=== PATIENT | male | born 1950 | race Caucasian/White ===

== ENCOUNTER 2017-08-25 15:29 | Inpatient (IN) | payer OTHER ==
[2017-08-25] MEDS ORDERED: ALBUTEROL 60 PUFFS/8 GM MDI IH PRN (16:38)
[2017-08-25] MEDS ORDERED: FLUTICASONE NASAL 120 SPRAYS/16 GM MDI EACHNARE PRN (16:38)
[2017-08-25] MEDS ORDERED: DEXAMETHASONE 2 MG TAB PO SCH (16:45)
[2017-08-25] MEDS ORDERED: D50W 25 GM/50 ML SYR IVP PRN (17:09)
[2017-08-25] MEDS: INSULIN LISPRO 100 UNIT/ML SC SCH (17:29)
--- NOTE | 2017-08-25 17:33 | PDOREHIP ---
Admission [facility] - Admission - 3 Day Assessment Period Admission Date/Day 1: 08/25/17 Day 2: 08/26/17 Day 3: 08/27/17 - Active Diagnoses Comorbidities and Co-existing Conditions at Admission: 32380. None of the Above - Skin Conditions Unhealed Pressure Ulcer (1 or more/Stage 1 or >)-Admission: 0. No
[2017-08-25] MEDS: metFORMIN HCL 500 MG TAB PO SCH (17:43)
[2017-08-25] MEDS ORDERED: DEXAMETHASONE 4 MG TAB PO ONE (18:00)
[2017-08-25] MEDS ORDERED: PANTOPRAZOLE SODIUM 40 MG TAB PO SCH (18:00)
--- NOTE | 2017-08-25 18:08 | GHP ---
[f rep st] HISTORY AND PHYSICAL POST ADMISSION PHYSICIAN EVALUATION AND REHABILITATION TREATMENT PLAN DATE OF ADMISSION: 08/25/2017 DATE OF EVALUATION: August 25, 2017 TIME OF EVALUATION: 1630 REFERRING FACILITY: [facility] REFERRING PHYSICIAN: Dr. Engel IMPAIRMENT GROUP: 2.1 DATE OF ONSET: August 18, 2017. REHABILITATION DIAGNOSIS: Debility status post craniotomy and resection of recurrent left parietal glioblastoma. ETIOLOGIC DIAGNOSIS: Nontraumatic brain dysfunction. DATE OF SURGERY: August 21, 2017 CONSULTATIONS: 1. Irvin Pierre M.D., Neurology. 2. Oncology. 3. Palliative Care. BODY AFTER REPORT REPORT TITLE: HISTORY OF PRESENT ILLNESS: This patient has a history of a right parietal glioblastoma and a prior rehabilitation stay at [facility] inpatient rehabilitation in October of 2015. He had a 7-10 day history of confusion and right-sided paresthesias and incoordination of the right hand. He came to the hospital. A head CT was positive for recurrent mass in the left parietal lobe with cerebral edema and midline shift. He was admitted to [facility] where he underwent a left craniotomy and tumor resection. He was treated with dexamethasone for cerebral edema. He had insulin for elevated blood sugars on the dexamethasone. Anticonvulsants were continued for history of seizures. He was noted to have a right visual field defect. He was otherwise medically stabilized and ready for inpatient rehabilitation. STUDIES AND LABS IN THE HOSPITAL: A BMP on the day of discharge showed a very slightly low sodium at 135, and CO2 was also slightly low at 20. Otherwise renal function and electrolytes were within normal limits. His fasting blood sugar was 115. CBC on 08/22/2017 showed an elevated white blood cell count at 14.74. He developed anemia with a hemoglobin of 11.9 and hematocrit of 35.2, platelet count was normal at 212. MRI brain after surgery showed postoperative changes from a left occipital craniotomy and resection over the previously noted large enhancing left occipital mass with subacute blood products and scattered pneumocephalus within the resection cavity. There was cytotoxic edema along the surgical margins compatible with acute ischemic change. There were stable postoperative changes from the previous right parietal craniotomy and mass resection. PRECAUTIONS: He is a fall risk. He has aspiration precautions and seizure precautions. ACTIVE COMORBIDITIES: He has no active tier 1, tier 2 or tier 3 comorbidities. PAST MEDICAL HISTORY: 1. 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 2. Gastroesophageal reflux disorder. 3. Steroid-induced diabetes mellitus. 4. Seizure disorder. 5. Vitamin D deficiency. 6. Benign prostatic hypertrophy. PAST SURGICAL HISTORY: He has had a prior craniotomy and excision of the right parietal glioblastoma. PRE-HOSPITAL MEDICATIONS: Medications prior to admission: 1. Folic acid 400 mg p.o. daily. 2. Lactobacillus rhamnosus 1 p.o. daily. 3. Ubidecarenone 1 tablet p.o. at bedtime. 4. Acetaminophen 650 mg p.o. q.6 hours p.r.n. 5. Albuterol 2 puffs every 4 hours p.r.n. 6. Atorvastatin 80 mg p.o. at bedtime. 7. Calcium carbonate 500 mg p.r.n. 8. Vitamin D 2000 units p.o. at bedtime. 9. Fluticasone 2 sprays each naris daily. 10. Levetiracetam 1500 mg p.o. twice daily. 11. Loratadine 10 mg p.o. daily. 12. Melatonin 3 mg p.o. at bedtime. 13. Metformin 500 mg p.o. twice daily. 14. Ondansetron 8 mg q.4 hours p.r.n. 15. Pantoprazole 40 mg p.o. twice daily before meals. 16. Prochlorperazine 10 mg p.o. q.4 hours p.r.n. 17. Tamsulosin 0.4 mg p.o. daily. 18. Multivitamin daily. 19. Zonisamide 100 mg p.o. at bedtime. ADMISSION MEDICATIONS: 1. Acetaminophen 650 mg p.o. q.6 hours p.r.n. 2. Albuterol 2 puffs q.4 hours p.r.n. 3. Atorvastatin 80 mg p.o. at bedtime. 4. Calcium carbonate 500 mg p.o. before meals and at h.s. p.r.n. 5. Cholecalciferol 2000 units p.o. at bedtime. 6. Dexamethasone taper with a 4 mg dose this evening and subsequently 2 mg q.12 hours. 7. Famotidine 20 mg p.o. twice daily p.r.n. 8. Fluticasone 2 sprays each naris daily. 9. Levetiracetam 1500 mg p.o. twice daily. 10. Loratadine 10 mg p.o. daily. 11. Melatonin 3 mg p.o. at bedtime. 12. Metformin 1000 mg p.o. twice daily with meals. 13. Multivitamin 1 p.o. daily. 14. Ondansetron 8 mg p.o. q.4 hours p.r.n. 15. Pantoprazole 40 mg p.o. twice daily with meals. 16. Prochlorperazine 10 mg p.o. q.4 hours p.r.n. 17. Tamsulosin 0.4 mg p.o. daily. 18. Zonisamide 100 mg p.o. at bedtime. ALLERGIES: Listed to midazolam which caused agitation. PSYCHOSOCIAL HISTORY: He is . He lives with his . He is a retired computer hardware developer. He has three adult children, two of whom are local. He is a nonsmoker. He has a history of using occasional alcohol, but not for a year or more. FAMILY HISTORY: There is diabetes in the maternal grandmother. REVIEW OF SYSTEMS: He is aware of visual difficulties. He denies a headache. He denies numbness, tingling or weakness of the extremities. He denies difficulty swallowing. He denies cough or dyspnea, chest pain or palpitations, nausea, vomiting, constipation, diarrhea, difficulty urinating. Otherwise a 10- point review of systems is negative. PHYSICAL EXAM: VITAL SIGNS: Blood pressure is 111/68, heart rate is 60, respiratory rate is 18, oxygen saturation is 98% on room air, temperature is 36.8 degrees centigrade. His weight is 75.2 kg for a body mass index of 24.5. GENERAL: This is a well-developed, well-nourished man sitting on the edge of the bed, dressed in street clothes, cooperative and in no acute distress. HEENT : Extraocular movements are intact, though he can lose track of the examiner's finger. Pupils are equal, round, reactive to light. Mucous membranes are moist. Dentition is in good condition. He has uncrowded airway, Mallampati class 2: There is no posterior oropharyngeal mucus and no oropharyngeal mucosal lesions. NECK: Supple. HEART: There is a regular rate and rhythm with no murmurs, rubs, or gallops. LUNGS: Clear to auscultation bilaterally. ABDOMEN: Soft, nontender, nondistended with normoactive bowel sounds and no hepatosplenomegaly. EXTREMITIES: There is no cyanosis, clubbing, or edema. Radial and dorsalis pedis pulses are 2+ bilaterally. NEUROLOGIC: He is alert and oriented x3. Cranial nerves 2-12 are grossly intact. There is no focal weakness. Sensation is intact to light touch and there is no extinguishing to double simultaneous stimulation. There is no pronator drift. Deep tendon reflexes are 2+ bilaterally at the biceps, patellar, and Achilles tendons. [id number] is within normal limits, though he has some ataxia with the left upper extremity, and rapid alternating movements are intact. SKIN: There is a well-approximated surgical incision on the left occipital region with sutures present. There is no erythema and no drainage. CURRENT LEVEL OF FUNCTION: Per the pre-admission screen. Regarding diet, feeding, and swallowing he was on a regular diet and he required supervision for eating. Regarding grooming he required minimal assist with voice cues, standing at the sink to brush his teeth. Dressing: Upper body was done with moderate assist and lower body with minimal assist and voice cues. Toileting required moderate assistance. Bed mobility required supervision. Transfers required minimal assist with verbal and tactile cues. Balance was fair and endurance was fair. He ambulated 100 feet with moderate assistance and difficulty with path finding due to visual deficit. Regarding cognition he had moderate impairment in recall, attention and orientation. He was considered a fall risk with mobility limited by visual deficits. On today's exam, there are no significant changes from the preadmission screen. IMPRESSION: This is a 66-year-old man who unfortunately had a recurrence of glioblastoma multiform after nearly 2 years following his previous surgery. He had been treated with chemotherapy with Temodar and radiation therapy. He developed a seizure disorder during his radiation therapy which ultimately is controlled with 2 medications. He has diabetes mellitus and worsening of his blood sugars on dexamethasone. He has benign prostatic hypertrophy and he is being treated for seasonal allergies and possible asthma. He has deficits to mobility and activities of daily living, and he has cognitive impairment. He is appropriate for inpatient rehabilitation for PT, OT , and ROADS SUPERVISOR regarding mobility, activities of daily living and cognition, the care of a nurse for skin integrity, wound healing, bowel and bladder, medication administration, and medication education, and the care of a physician for symptom management, risk for neurologic deterioration, seizure risk, and comorbidities including diabetes mellitus, gastroesophageal reflux disorder, and benign prostatic hypertrophy. His goal is to complete a rehabilitation stay and then return home with his family and supportive services. It is anticipated that for a safe discharge, he will achieve independence with eating and bed mobility. He will be modified independence for grooming, transfers, and for ambulation with the least restrictive device on level and unlevel surfaces. He may continue to require supervision for bathing and dressing, and he will likely require assistance for household management, as well as meal preparation and chopping. He will have therapy with physical therapy, occupational therapy, and speech therapy for 1 hour per day for each discipline on 5-7 days of the week. His expected duration of stay is 7-10 days. It is anticipated that upon discharge he will continue to benefit from home health services including nursing, speech and language pathology, a nurse's aide , social work, occupational therapy, and physical therapy. PLAN: 1. Deficits to mobility and activities of daily living with significant visual field deficits following surgery and excision of a recurrent glioblastoma multiforme in the left parietal region, PT and OT to optimize mobility and activities of daily living to the independent to modified independent level. 2. Cognitive impairment following brain surgery, assessment and treatment per Speech and Language Pathology. 3. Diabetes mellitus with exacerbation on corticosteroids. Continue metformin and we will order insulin on a sliding scale. 4. Seizure disorder. Continue levetiracetam and zonisamide, and he will have seizure precautions. 5. Seasonal allergies and history of asthma. Continue albuterol, cetirizine and fluticasone nasal spray. 6. Gastroesophageal reflux disorder as well as GI prophylaxis. Continue pantoprazole, famotidine, and calcium carbonate all on a p.r.n. basis. 7. Benign prostatic hypertrophy. Continue tamsulosin. 8. Nausea, which in the past has presented during speech therapy sessions. Continue ondansetron as well as prochlorperazine. 9. Mild hyponatremia and anemia on hospital labs. We will check a BMP and a CBC tomorrow morning. FOLLOWUP: He is to see Dr. Pierre at [facility] within 1-2 weeks. He will follow up with [facility] Oncology, Dr. Gamez. His primary care provider is [place] [facility], Dr. Olayinka Dempsey. Radiology Oncology is Dr. Collins. He also can follow up with [facility] after his discharge. /[id number]/MODL MTDD
[2017-08-25] MEDS: FAMOTIDINE 20 MG TAB PO PRN (19:38)
[2017-08-25] MEDS: ATORVASTATIN CALCIUM 40 MG TAB PO SCH (20:22)
[2017-08-25] MEDS: levETIRAcetam 500 MG TAB PO SCH (20:22)
[2017-08-25] MEDS: MELATONIN 3 MG TAB PO SCH (20:22)
[2017-08-25] MEDS: CHOLECALCIFEROL VIT D3 1,000 UNITS TAB PO SCH (20:22)
[2017-08-25] MEDS: ZONISAMIDE 100 MG CAP PO SCH (20:23)
[2017-08-25] MEDS ORDERED: LEVETIRACETAM 1500 MG PO SCH (21:00)
[2017-08-25] MEDS ORDERED: NON-FORMULARY NEW DRUG (Atorvastatin Calcium [Lipitor 80 Mg] 80 MG) PO SCH (21:00)
[2017-08-26] MEDS: DEXAMETHASONE 2 MG TAB PO SCH ×2 (06:09→17:27)
[2017-08-26] MEDS: CETIRIZINE 10 MG TAB PO SCH (08:12)
[2017-08-26] MEDS: metFORMIN HCL 500 MG TAB PO SCH ×2 (08:12→17:27)
[2017-08-26] MEDS: MULTIVITAMINS 1 EACH TAB PO SCH (08:12)
[2017-08-26] MEDS: PANTOPRAZOLE SODIUM 40 MG TAB PO SCH ×2 (08:13→16:38)
[2017-08-26] MEDS: TAMSULOSIN HCL 0.4 MG CAP PO SCH (08:13)
[2017-08-26] MEDS: levETIRAcetam 500 MG TAB PO SCH ×2 (08:13→20:35)
[2017-08-26] MEDS: INSULIN LISPRO 100 UNIT/ML SC SCH ×3 (08:13→16:45)
[2017-08-26] MEDS ORDERED: Herbals/Supplements -Info Only PO SCH (09:00)
[2017-08-26] MEDS ORDERED: NON-FORMULARY NEW DRUG (Loratadine [Loratadine] 10 MG) PO SCH (09:00)
[2017-08-26 09:01] LABS: PLATELET COUNT 267 10^3/uL (150-400)
[2017-08-26] MEDS: ONDANSETRON DISINTEGRATING 4 MG TAB PO PRN (12:08)
--- NOTE | 2017-08-26 13:17 | HOSPPROG ---
Hospitalist Progress Note Assessment/Plan: Assessment: 66 yo M p/w recurrent GBM s/p excision Plan: # GBM. Recurrent, left parietal w/ vasogenic edema and midline shift, s/p excision by Dr. Pierre -cont on dex taper -surg site well healing, sutures intact -ongoing nausea/dizziness symptoms provoked by JAVA FRONT END WEB DEVELOPER/Cog therapy, d/w patient and , in the past he was responsive to pre-medicating w/ Zofran prior to JAVA FRONT END WEB DEVELOPER therapy, and I would recommend that we do this moving forward w/ 8mg PO zofran -if 8mg zofran makes him too lethargic for therapies, we can reduce to 4mg -current exam demonstrates visual field deficits, lethargy, and mobility impairment # DM2 w/ hyperglycemia. Exacerbated by steroids, FBG 100 today -cont on home metformin + ISS, currently does not require addition of basal insulin # Seizure disorder. Chronic, likely lower threshold in setting of recent NSGY -cont on keppra and zonisamide # BPH. Chronic, cont on tamsulosin Diet. ADA PPx. Pharm contraindicated, SCDs Code. Full Dispo. ADD uncertain, ongoing therapy needs Subjective: patient reports dizziness/nausea immediately following his JAVA FRONT END WEB DEVELOPER session Objective: Vital Signs Temp Pulse Resp BP Pulse Ox 37.0 C 56 L 16 116/67 98 08/26/17 05:27 08/26/17 05:27 08/26/17 05:27 08/26/17 05:44 08/26/17 05:27 Laboratory Results 08/26/17 06:00 08/26/17 06:00 08/25/17 08/26/17 08/27/17 05:59 05:59 05:59 Intake Total 1160 500 Output Total 1775 Balance -615 500 - Physical Exam Constitutional: no apparent distress, not in pain, chronically ill appearing, No uncomfortable Cardiovascular: regular rate and rhythym, no murmur, rub, or gallop, No edema Respiratory: no respiratory distress, no rales or rhonchi, clear to auscultation Gastrointestinal: normoactive bowel sounds, soft, non-tender abdomen, no palpable masses Skin: other (no significant erythema/induration/tenderness/edema around surg site on posterior scalp) Neurologic: AAOx3, sensation intact bilaterally, other (visual field deficits peripherally and RL quad), No facial droop Psychiatric: not anxious, not encephalopathic, flat affect, other (lethargic but arousable), No agitated ICD10 Worksheet Patient Problems: Problems Problem Status Onset S/P craniotomy Acute Glioblastoma multiforme of parietal lobe Acute
[2017-08-26] MEDS: FAMOTIDINE 20 MG TAB PO PRN (20:07)
[2017-08-26] MEDS: ZONISAMIDE 100 MG CAP PO SCH (20:35)
[2017-08-26] MEDS: CHOLECALCIFEROL VIT D3 1,000 UNITS TAB PO SCH (20:36)
[2017-08-26] MEDS: MELATONIN 3 MG TAB PO SCH (20:36)
[2017-08-26] MEDS: ATORVASTATIN CALCIUM 40 MG TAB PO SCH (20:36)
[2017-08-27] MEDS: DEXAMETHASONE 2 MG TAB PO SCH (05:30)
[2017-08-27] MEDS: PANTOPRAZOLE SODIUM 40 MG TAB PO SCH ×2 (07:08→16:38)
[2017-08-27] MEDS: INSULIN LISPRO 100 UNIT/ML SC SCH ×3 (07:10→16:39)
[2017-08-27] MEDS: ONDANSETRON DISINTEGRATING 4 MG TAB PO PRN ×2 (08:48→13:05)
[2017-08-27] MEDS: metFORMIN HCL 500 MG TAB PO SCH ×2 (08:49→17:34)
[2017-08-27] MEDS: CETIRIZINE 10 MG TAB PO SCH (08:49)
[2017-08-27] MEDS: MULTIVITAMINS 1 EACH TAB PO SCH (08:49)
[2017-08-27] MEDS: levETIRAcetam 500 MG TAB PO SCH ×2 (08:49→20:25)
[2017-08-27] MEDS: TAMSULOSIN HCL 0.4 MG CAP PO SCH (08:49)
[2017-08-27] MEDS: ACETAMINOPHEN 325 MG TAB PO PRN (11:12)
[2017-08-27] MEDS ORDERED: SODIUM CL NASAL 45 ML BTL EACHNARE PRN (12:19)
--- NOTE | 2017-08-27 12:22 | HOSPPROG ---
Hospitalist Progress Note Assessment/Plan: Assessment: 66 yo M p/w recurrent GBM s/p excision Plan: # GBM. Recurrent, left parietal w/ vasogenic edema and midline shift, s/p excision by Dr. Pierre -cont on dex taper, adjusted from 2mg bid to 2mg daily starting this AM, duration of taper TBD -surg site well healing, sutures intact -nausea/dizziness symptoms provoked by CHOPPER GUN OPERATOR/Cog therapy, pre-medicating w/ Zofran prior to CHOPPER GUN OPERATOR therapy (8mg) -tolerating 8mg zofran from a cognitive standpoint -current exam demonstrates visual field deficits, memory, and mobility impairment # DM2 w/ hyperglycemia. Exacerbated by steroids, FBG 117 today (range 113-151) -cont on home metformin + ISS, currently does not require addition of basal insulin # Seizure disorder. Chronic, likely lower threshold in setting of recent NSGY -cont on keppra and zonisamide # BPH. Chronic, cont on tamsulosin # Sinus congestion. Acute on chronic, patient w/ allergic rhinitis and on flonase at baseline -patient requested that he use his own home nasal spray, OK to take own home Rx when brings (saline nasal spray PRN available) -if inadequate relief, recommend mucinex and low dose anti-histamine -no e/o sinusitis on physical exam Diet. ADA PPx. Pharm contraindicated, SCDs Code. Full Dispo. ADD uncertain, ongoing therapy needs Subjective: reports mildly increased sinus congestion, no N/V this AM w/ therapy (received pre-medication) Objective: Vital Signs Temp Pulse Resp BP Pulse Ox 36.4 C 57 L 16 120/75 95 08/27/17 08:00 08/27/17 08:00 08/27/17 08:00 08/27/17 08:00 08/27/17 08:00 Laboratory Results 08/26/17 06:00 08/26/17 06:00 08/26/17 08/27/17 08/28/17 05:59 05:59 05:59 Intake Total 1160 900 390 Output Total 1775 600 Balance -615 300 390 - Physical Exam Constitutional: no apparent distress, not in pain, chronically ill appearing, No uncomfortable Eyes: PERRL, anicteric sclera, EOMI Ears, Nose, Mouth, Throat: hard of hearing, other (no maxillary or ethmoid sinus tenderness) Cardiovascular: regular rate and rhythym, no murmur, rub, or gallop, No edema Respiratory: no respiratory distress, no rales or rhonchi, clear to auscultation Gastrointestinal: normoactive bowel sounds, soft, non-tender abdomen, no palpable masses Skin: other (no erythema around surg sites, sutures in place, no tenderness/ induration) Neurologic: AAOx3, No weakness (motor 5/5 bilat UE/LE) Psychiatric: not anxious, flat affect, poor memory, other (mildly delayed verbal responsiveness, responds to verbal stimuli), No agitated ICD10 Worksheet Patient Problems: Problems Problem Status Onset S/P craniotomy Acute Glioblastoma multiforme of parietal lobe Acute
[2017-08-27] MEDS: FAMOTIDINE 20 MG TAB PO PRN (19:19)
[2017-08-27] MEDS: ATORVASTATIN CALCIUM 40 MG TAB PO SCH (20:25)
[2017-08-27] MEDS: MELATONIN 3 MG TAB PO SCH (20:25)
[2017-08-27] MEDS: ZONISAMIDE 100 MG CAP PO SCH (20:25)
[2017-08-27] MEDS: CHOLECALCIFEROL VIT D3 1,000 UNITS TAB PO SCH (20:25)
[2017-08-28] MEDS: ACETAMINOPHEN 325 MG TAB PO PRN ×2 (05:52→10:42)
[2017-08-28] MEDS: ONDANSETRON DISINTEGRATING 4 MG TAB PO PRN ×2 (08:09→13:49)
[2017-08-28] MEDS: metFORMIN HCL 500 MG TAB PO SCH ×2 (08:10→17:25)
[2017-08-28] MEDS: levETIRAcetam 500 MG TAB PO SCH ×2 (08:10→20:23)
[2017-08-28] MEDS: CETIRIZINE 10 MG TAB PO SCH (08:10)
[2017-08-28] MEDS: PANTOPRAZOLE SODIUM 40 MG TAB PO SCH ×2 (08:11→16:43)
[2017-08-28] MEDS: INSULIN LISPRO 100 UNIT/ML SC SCH ×3 (08:11→17:29)
[2017-08-28] MEDS: TAMSULOSIN HCL 0.4 MG CAP PO SCH (08:11)
[2017-08-28] MEDS: MULTIVITAMINS 1 EACH TAB PO SCH (08:11)
[2017-08-28] MEDS: DEXAMETHASONE 2 MG TAB PO SCH (08:11)
--- NOTE | 2017-08-28 09:52 | SOAPPROG ---
SOAP Progress Note Assessment/Plan: Assessment: 66 year old man status post craniotomy on 08/21/2017 and excision of left parietal GBM, with history of right parietal GBM excision approximately 2 years ago, followed by chemotherapy and radiation. Deficits to mobility and activities of daily living with significant visual field deficits * Initial functional independence measure 87 on 08/28/2017. Standby assistance with bed mobility and transfers. Ambulated greater than 150 ft with standby assist for navigation. Climbed and descended 12 stairs with 1 rail, contact guard assist. Card Herman for was accomplished with contact guard assist. Scored 12/24 on the dynamic gait index indicating fall risk. Activities of daily living are contact guard assist with cues for spatial awareness. He has a right visual field cut. He has visual processing deficits. * Unclear whether there is decline in function regarding use of left hand today , 08/28/2017, after discussion with therapists. Pronator drift which was not noted on admission is concerning. Consider head CT. Observe for change in function. * Continue PT and OT to optimize mobility and activities of daily living to the independent to modified independent level. Cognitive impairment following brain surgery * Delayed recall and deficits to attention and safety awareness. * Continue treatment per Speech and Language Pathology. Diabetes mellitus with exacerbation on corticosteroids. Continue metformin and insulin on a sliding scale. Seizure disorder. Continue levetiracetam and zonisamide, and he will have seizure precautions. Seasonal allergies and history of asthma. Continue albuterol, cetirizine and fluticasone nasal spray. Gastroesophageal reflux disorder as well as GI prophylaxis. Continue pantoprazole, famotidine, and calcium carbonate all on a p.r.n. basis. Benign prostatic hypertrophy. Continue tamsulosin. Nausea, which in the past has presented during speech therapy sessions. Continue ondansetron as well as prochlorperazine. Mild hyponatremia and anemia on hospital labs. Anemia improving and hyponatremia resolved on labs 08/26/2017. DISPOSITION: Attended staffing, 15 min. Discussed with case management, dietitian, nursing, PT, OT, CUSTOM WOOD STAIR BUILDER. Progressing well towards discharge. Set discharge date for 09/01/2017. Will have home PT OT and CUSTOM WOOD STAIR BUILDER. FOLLOWUP: He is to see Dr. Pierre at [facility] within 1-2 weeks. He will follow up with [facility] Oncology, Dr. Gamez. His primary care provider is [place] [facility], Dr. Olayinka Dempsey. Radiology Oncology is Dr. Collins. He also can follow up with [facility] after his discharge. 08/28/17 12:28 Subjective: Had increased headache and nausea this morning. Nausea appeared after cognitive work with speech therapy. Does not noted any increased weakness. Later in the morning, at the time of exam, he reports nausea has resolved and he feels hungry and is asking for snack before his next therapy session. Objective: Vital Signs Temp Pulse Resp BP Pulse Ox 37.0 C 62 16 94/61 L 97 08/28/17 06:01 08/28/17 08:17 08/28/17 06:01 08/28/17 08:17 08/28/17 06:01 Laboratory Results 08/26/17 06:00 08/26/17 06:00 08/27/17 08/28/17 08/29/17 05:59 05:59 05:59 Intake Total 900 1980 Output Total 600 250 Balance 300 1730 - Time Spent With Patient Time Spent With Patient: Greater than 35 min floor time today, including more than 50% of time in coordination of care during staffing, and counseling patient and . Physical Exam - Physical Exam General Appearance: WD/WN, alert, no apparent distress Respiratory: normal breath sounds, No crackles, No rhonchi, No wheezing Cardiac/Chest: regular rate, rhythm, No diastolic murmur, No systolic murmur Skin: normal color, warm/dry, other (Scalp wound approximated, minimal erythema , no discharge.) Neuro/Psych: alert, normal mood/affect, oriented x 3, other (Difficulty locating objects in the room. Pronator drift on left.), No motor weakness ICD10 Worksheet Patient Problems: Problems Problem Status Onset Glioblastoma multiforme of parietal lobe Acute S/P craniotomy Acute
[2017-08-28] MEDS: CALCIUM CARBONATE 500 MG CHEWABLE TAB PO PRN (17:25)
[2017-08-28] MEDS: FAMOTIDINE 20 MG TAB PO PRN (19:37)
[2017-08-28] MEDS: ATORVASTATIN CALCIUM 40 MG TAB PO SCH (20:23)
[2017-08-28] MEDS: CHOLECALCIFEROL VIT D3 1,000 UNITS TAB PO SCH (20:24)
[2017-08-28] MEDS: MELATONIN 3 MG TAB PO SCH (20:24)
[2017-08-28] MEDS: ZONISAMIDE 100 MG CAP PO SCH (20:30)
[2017-08-29] MEDS: ATORVASTATIN CALCIUM 40 MG TAB PO SCH (21:00)
[2017-08-30] MEDS: ONDANSETRON DISINTEGRATING 4 MG TAB PO PRN ×2 (06:49→10:55)
[2017-08-30] MEDS: PANTOPRAZOLE SODIUM 40 MG TAB PO SCH ×3 (06:49→16:57)
[2017-08-30] MEDS: INSULIN LISPRO 100 UNIT/ML SC SCH ×4 (08:09→17:15)
[2017-08-30] MEDS: CETIRIZINE 10 MG TAB PO SCH ×2 (08:09→15:26)
[2017-08-30] MEDS: metFORMIN HCL 500 MG TAB PO SCH ×3 (08:09→16:59)
[2017-08-30] MEDS: DEXAMETHASONE 2 MG TAB PO SCH ×2 (08:10→15:27)
[2017-08-30] MEDS: MULTIVITAMINS 1 EACH TAB PO SCH ×2 (08:11→15:28)
[2017-08-30] MEDS: levETIRAcetam 500 MG TAB PO SCH ×4 (08:11→19:54)
[2017-08-30] MEDS: TAMSULOSIN HCL 0.4 MG CAP PO SCH ×2 (08:12→15:28)
[2017-08-30] MEDS: CALCIUM CARBONATE 500 MG CHEWABLE TAB PO PRN (09:39)
[2017-08-30] MEDS: PROCHLORPERAZINE MALEATE 10 MG TAB PO PRN (14:17)
[2017-08-30] MEDS: CHOLECALCIFEROL VIT D3 1,000 UNITS TAB PO SCH ×2 (15:26→19:54)
[2017-08-30] MEDS: ATORVASTATIN CALCIUM 40 MG TAB PO SCH ×2 (15:26→19:53)
[2017-08-30] MEDS: MELATONIN 3 MG TAB PO SCH ×2 (15:28→19:53)
[2017-08-30] MEDS: ZONISAMIDE 100 MG CAP PO SCH ×2 (15:28→19:55)
--- NOTE | 2017-08-30 16:00 | SOAPPROG ---
SOAP Progress Note Assessment/Plan: Assessment: 66 year old man status post craniotomy on 08/21/2017 and excision of left parietal GBM, with history of right parietal GBM excision approximately 2 years ago, followed by chemotherapy and radiation. Deficits to mobility and activities of daily living with significant visual field deficits * Initial functional independence measure 87 on 08/28/2017. Standby assistance with bed mobility and transfers. Ambulated greater than 150 ft with standby assist for navigation. Climbed and descended 12 stairs with 1 rail, contact guard assist. Car transfer for was accomplished with contact guard assist. Scored 24 on the dynamic gait index indicating fall risk. Activities of daily living are contact guard assist with cues for spatial awareness. He has a right visual field cut. He has visual processing deficits. * Unclear whether there is decline in function regarding use of left hand today , 08/28/2017, after discussion with therapists. Pronator drift which was not noted on admission is concerning. Consider head CT. Observe for change in function. * Continue PT and OT to optimize mobility and activities of daily living to the independent to modified independent level. Cognitive impairment following brain surgery * Delayed recall and deficits to attention and safety awareness. * Continue treatment per Speech and Language Pathology. Diabetes mellitus with exacerbation on corticosteroids. Continue metformin and insulin on a sliding scale. Seizure disorder. Continue levetiracetam and zonisamide, and seizure precautions. Seasonal allergies and history of asthma. Continue albuterol, cetirizine and fluticasone nasal spray. Gastroesophageal reflux disorder as well as GI prophylaxis. Continue pantoprazole, famotidine, and calcium carbonate all on a p.r.n. basis. Benign prostatic hypertrophy. Continue tamsulosin. Nausea, which in the past has presented during speech therapy sessions. Continue ondansetron as well as prochlorperazine. Mild hyponatremia and anemia on hospital labs. Anemia improving and hyponatremia resolved on labs 08/26/2017. DISPOSITION: Progressing well towards discharge. Set discharge date for 2017. Will have home PT OT and FUSELAGE FRAMER. FOLLOWUP: He is to see Dr. Pierre at [facility] within 1-2 weeks. He will follow up with [facility], Dr. Gamez. His primary care provider is [place] physician, Dr. Olayinka Dempsey. Radiation Oncologist is Dr. Collins. He also can follow up with [facility] after his discharge. 08/30/17 15:42 Subjective: No complaints. Denies headache dizziness or nausea. Slept well though he reports sleep was interrupted with about 330 in the morning, he thinks by bright light and he thought it was ramez however it was not. Objective: Vital Signs Temp Pulse Resp BP Pulse Ox 36.7 C 94 16 126/83 H 94 08/30/17 08:00 08/30/17 08:00 08/30/17 08:00 08/30/17 08:00 08/30/17 08:00 Laboratory Results 08/26/17 06:00 08/26/17 06:00 08/29/17 08/30/17 08/31/17 05:59 05:59 05:59 Intake Total 630 710 540 Balance 630 710 540 Physical Exam - Physical Exam General Appearance: WD/WN, alert, no apparent distress Respiratory: normal breath sounds, No crackles, No rhonchi, No wheezing Cardiac/Chest: regular rate, rhythm, No edema, No diastolic murmur, No systolic murmur Skin: normal color, warm/dry, other (Scalp incision with sutures present, well- approximated, no erythema or drainage.) Neuro/Psych: alert, normal mood/affect ICD10 Worksheet Patient Problems: Problems Problem Status Onset Glioblastoma multiforme of parietal lobe Acute S/P craniotomy Acute
[2017-08-31] MEDS: ONDANSETRON DISINTEGRATING 4 MG TAB PO PRN ×2 (06:35→12:53)
[2017-08-31] MEDS: PANTOPRAZOLE SODIUM 40 MG TAB PO SCH ×2 (06:35→17:12)
[2017-08-31] MEDS: INSULIN LISPRO 100 UNIT/ML SC SCH ×3 (07:38→17:12)
[2017-08-31] MEDS: metFORMIN HCL 500 MG TAB PO SCH ×2 (08:25→17:12)
[2017-08-31] MEDS: MULTIVITAMINS 1 EACH TAB PO SCH (08:25)
[2017-08-31] MEDS: TAMSULOSIN HCL 0.4 MG CAP PO SCH (08:25)
[2017-08-31] MEDS: DEXAMETHASONE 2 MG TAB PO SCH (08:25)
[2017-08-31] MEDS: CETIRIZINE 10 MG TAB PO SCH (08:25)
[2017-08-31] MEDS: levETIRAcetam 500 MG TAB PO SCH ×2 (08:25→20:02)
--- NOTE | 2017-08-31 12:59 | SOAPPROG ---
SOAP Progress Note Assessment/Plan: Assessment: 66 year old man status post craniotomy on 08/21/2017 and excision of left parietal GBM, with history of right parietal GBM excision approximately 2 years ago, followed by chemotherapy and radiation. Deficits to mobility and activities of daily living with significant visual field deficits * Initial functional independence measure 87 on 08/28/2017. Standby assistance with bed mobility and transfers. Ambulated greater than 150 ft with standby assist for navigation. Climbed and descended 12 stairs with 1 rail, contact guard assist. Car transfer for was accomplished with contact guard assist. Scored 1224 on the dynamic gait index indicating fall risk. Activities of daily living are contact guard assist with cues for spatial awareness. He has a right visual field cut. He has visual processing deficits. * Unclear whether there is decline in function regarding use of left hand today , 08/28/2017, after discussion with therapists. Pronator drift which was not noted on admission is concerning. Obtained head CT, which showed postsurgical changes and no midline shift or new hemorrhage. * Continue PT and OT to optimize mobility and activities of daily living to the independent to modified independent level. Cognitive impairment following brain surgery * Delayed recall and deficits to attention and safety awareness. * Continue treatment per Speech and Language Pathology. Diabetes mellitus with exacerbation on corticosteroids. Continue metformin and insulin on a sliding scale. Seizure disorder. Continue levetiracetam and zonisamide, and seizure precautions. Seasonal allergies and history of asthma. Continue albuterol, cetirizine and fluticasone nasal spray. Gastroesophageal reflux disorder as well as GI prophylaxis. Continue pantoprazole, famotidine, and calcium carbonate all on a p.r.n. basis. Benign prostatic hypertrophy. Continue tamsulosin. Nausea, which in the past has presented during speech therapy sessions. Continue ondansetron as well as prochlorperazine. Mild hyponatremia and anemia on hospital labs. Anemia improving and hyponatremia resolved on labs 08/26/2017. DISPOSITION: Progressing well towards discharge. Set discharge date for 2017. Will have home PT OT and CONCRETE STONE FINISHER. FOLLOWUP: He is to see Dr. Pierre at [facility] 1-2 weeks after discharge. He will follow up with [facility], Dr. Gamez. His primary care provider is [place] physician, Dr. Olayinka Dempsey. Radiation Oncologist is Dr. Collins, with whom he has an appointment for 09/05/2017. D/W Neurosurgery: incisions can be removed 2 weeks after surgery, which is 2017. He also can follow up with [place] [facility] after his discharge. 08/31/17 12:56 Subjective: No complaints. Sleeping well. Not in pain. No cough or dyspnea, fevers or chills. Objective: Vital Signs Temp Pulse Resp BP Pulse Ox 36.7 C 72 16 110/80 96 08/31/17 07:00 08/31/17 07:00 08/31/17 07:00 08/31/17 07:00 08/31/17 07:00 Laboratory Results 08/26/17 06:00 08/26/17 06:00 08/30/17 08/31/17 09/01/17 05:59 05:59 05:59 Intake Total 710 540 Balance 710 540 Physical Exam - Physical Exam General Appearance: WD/WN, alert, no apparent distress Respiratory: No respiratory distress, No accessory muscle use Skin: normal color, warm/dry, other (Scalp incision C/D/I, sutures in place.) Neuro/Psych: alert, normal mood/affect, oriented x 3, other (Relates with trekking pole, normal gait) ICD10 Worksheet Patient Problems: Problems Problem Status Onset Glioblastoma multiforme of parietal lobe Acute S/P craniotomy Acute
[2017-08-31] MEDS: ACETAMINOPHEN 325 MG TAB PO PRN (18:46)
[2017-08-31] MEDS: ATORVASTATIN CALCIUM 40 MG TAB PO SCH (20:02)
[2017-08-31] MEDS: MELATONIN 3 MG TAB PO SCH (20:02)
[2017-08-31] MEDS: ZONISAMIDE 100 MG CAP PO SCH (20:02)
[2017-08-31] MEDS: CHOLECALCIFEROL VIT D3 1,000 UNITS TAB PO SCH (20:02)
[2017-09-01] MEDS: ACETAMINOPHEN 325 MG TAB PO PRN (04:51)
[2017-09-01] MEDS: PANTOPRAZOLE SODIUM 40 MG TAB PO SCH ×2 (07:15→16:49)
[2017-09-01] MEDS: INSULIN LISPRO 100 UNIT/ML SC SCH ×3 (08:06→16:58)
[2017-09-01] MEDS: levETIRAcetam 500 MG TAB PO SCH ×2 (08:10→20:55)
[2017-09-01] MEDS: MULTIVITAMINS 1 EACH TAB PO SCH (08:11)
[2017-09-01] MEDS: DEXAMETHASONE 2 MG TAB PO SCH (08:11)
[2017-09-01] MEDS: CETIRIZINE 10 MG TAB PO SCH (08:11)
[2017-09-01] MEDS: TAMSULOSIN HCL 0.4 MG CAP PO SCH (08:11)
[2017-09-01] MEDS: metFORMIN HCL 500 MG TAB PO SCH ×2 (08:11→17:20)
--- NOTE | 2017-09-01 13:38 | SOAPPROG ---
SOAP Progress Note Assessment/Plan: Assessment: 66 year old man status post craniotomy on 08/21/2017 and excision of left parietal GBM, with history of right parietal GBM excision approximately 2 years ago, followed by chemotherapy and radiation. Deficits to mobility and activities of daily living with significant visual field deficits * Initial functional independence measure 87 on 08/28/2017. Standby assistance with bed mobility and transfers. Ambulated greater than 150 ft with standby assist for navigation. Climbed and descended 12 stairs with 1 rail, contact guard assist. Car transfer for was accomplished with contact guard assist. Scored 03/12 on the dynamic gait index indicating fall risk. Activities of daily living are contact guard assist with cues for spatial awareness. He has a right visual field cut. He has visual processing deficits. * Obtained head CT 08/29/2017 for left upper extremity ataxia and new pronator drift. It showed postsurgical changes and no midline shift or new hemorrhage. * Continue PT and OT to optimize mobility and activities of daily living to the independent to modified independent level. Cognitive impairment following brain surgery * Delayed recall and deficits to attention and safety awareness. * Continue treatment per Speech and Language Pathology. Diabetes mellitus with exacerbation on corticosteroids. Continue metformin. Not needing insulin. Discontinue dexamethasone on 09/02/2017, per discussion with Neurosurgery. Seizure disorder. Continue levetiracetam and zonisamide, and seizure precautions. Seasonal allergies and history of asthma. Continue cetirizine and fluticasone nasal spray. Symptoms are controlled and not using any albuterol. Gastroesophageal reflux disorder as well as GI prophylaxis. Continue pantoprazole, famotidine, and calcium carbonate all on a p.r.n. basis. Benign prostatic hypertrophy. Continue tamsulosin. Nausea, which in the past has presented during speech therapy sessions. Continue ondansetron as well as prochlorperazine. Mild hyponatremia and anemia on hospital labs. Anemia improving and hyponatremia resolved on labs 08/26/2017. DISPOSITION: Progressing well towards discharge. Discharge home on 09/04/2017. Will have home PT OT and RETAIL FIELD MERCHANDISER. FOLLOWUP: He is to see Dr. Pierre at [facility] 1-2 weeks after discharge. He will follow up with [facility], Dr. Gamez. His primary care provider is [place] physician, Dr. Olayinka Dempsey. Radiation Oncologist is Dr. Collins, with whom he has an appointment for 09/05/2017. D/W Neurosurgery: incisions can be removed 2 weeks after surgery, which is 2017. He also can follow up with [place] [facility] after his discharge. 09/01/17 13:35 Subjective: No complaints. Not in pain. Functionally improving. Objective: Vital Signs Temp Pulse Resp BP Pulse Ox 36.8 C 69 16 115/75 96 09/01/17 06:27 09/01/17 06:27 09/01/17 06:27 09/01/17 06:27 09/01/17 06:27 Laboratory Results 08/26/17 06:00 08/26/17 06:00 08/31/17 09/01/17 09/02/17 05:59 05:59 05:59 Intake Total 540 1000 990 Balance 540 1000 990 Physical Exam - Physical Exam General Appearance: WD/WN, alert, no apparent distress Respiratory: No respiratory distress, No accessory muscle use Skin: normal color, warm/dry, other (Scalp incision with sutures, well- approximated, no erythema or drainage.) Neuro/Psych: alert, normal mood/affect, oriented x 3, No motor weakness ICD10 Worksheet Patient Problems: Problems Problem Status Onset Glioblastoma multiforme of parietal lobe Acute S/P craniotomy Acute
[2017-09-01] MEDS: ONDANSETRON DISINTEGRATING 4 MG TAB PO PRN (14:10)
[2017-09-01] MEDS: MELATONIN 3 MG TAB PO SCH (20:55)
[2017-09-01] MEDS: ZONISAMIDE 100 MG CAP PO SCH (20:55)
[2017-09-01] MEDS: ATORVASTATIN CALCIUM 40 MG TAB PO SCH (20:55)
[2017-09-01] MEDS: CHOLECALCIFEROL VIT D3 1,000 UNITS TAB PO SCH (20:55)
[2017-09-02] MEDS: INSULIN LISPRO 100 UNIT/ML SC SCH ×3 (07:32→16:54)
[2017-09-02] MEDS: PANTOPRAZOLE SODIUM 40 MG TAB PO SCH ×2 (08:12→17:02)
[2017-09-02] MEDS: levETIRAcetam 500 MG TAB PO SCH ×2 (08:12→20:28)
[2017-09-02] MEDS: metFORMIN HCL 500 MG TAB PO SCH ×2 (08:12→17:02)
[2017-09-02] MEDS: TAMSULOSIN HCL 0.4 MG CAP PO SCH (08:12)
[2017-09-02] MEDS: CETIRIZINE 10 MG TAB PO SCH (08:13)
[2017-09-02] MEDS: MULTIVITAMINS 1 EACH TAB PO SCH (08:13)
[2017-09-02] MEDS: ONDANSETRON DISINTEGRATING 4 MG TAB PO PRN ×2 (09:18→14:36)
--- NOTE | 2017-09-02 13:24 | SOAPPROG ---
SOAP Progress Note Assessment/Plan: Assessment: 66 year old man status post craniotomy on 08/21/2017 and excision of left parietal GBM, with history of right parietal GBM excision approximately 2 years ago, followed by chemotherapy and radiation. Deficits to mobility and activities of daily living with significant visual field deficits * Initial functional independence measure 87 on 08/28/2017. Standby assistance with bed mobility and transfers. Ambulated greater than 150 ft with standby assist for navigation. Climbed and descended 12 stairs with 1 rail, contact guard assist. Car transfer for was accomplished with contact guard assist. Scored 03/12 on the dynamic gait index indicating fall risk. Activities of daily living are contact guard assist with cues for spatial awareness. He has a right visual field cut. He has visual processing deficits. * Obtained head CT 08/29/2017 for left upper extremity ataxia and new pronator drift. It showed postsurgical changes and no midline shift or new hemorrhage. * Continue PT and OT to optimize mobility and activities of daily living to the independent to modified independent level. Cognitive impairment following brain surgery * Delayed recall and deficits to attention and safety awareness. * Continue treatment per Speech and Language Pathology. Diabetes mellitus with exacerbation on corticosteroids. Continue metformin. Not needing insulin. Discontinue dexamethasone on 09/02/2017, per discussion with Neurosurgery. Seizure disorder. Continue levetiracetam and zonisamide, and seizure precautions. Seasonal allergies and history of asthma. Continue cetirizine and fluticasone nasal spray. Symptoms are controlled and not using any albuterol. Gastroesophageal reflux disorder as well as GI prophylaxis. Continue pantoprazole, famotidine, and calcium carbonate all on a p.r.n. basis. Benign prostatic hypertrophy. Continue tamsulosin. Nausea, which in the past has presented during speech therapy sessions. Continue ondansetron as well as prochlorperazine. Mild hyponatremia and anemia on hospital labs. Anemia improving and hyponatremia resolved on labs 08/26/2017. DISPOSITION: Progressing well towards discharge. Discharge home on 09/04/2017. Will have home PT OT and CHIEF MEDICAL TECHNOLOGIST. FOLLOWUP: He is to see Dr. Pierre at [facility] 1-2 weeks after discharge. He will follow up with [facility], Dr. Gamez. His primary care provider is [place] physician, Dr. Olayinka Dempsey. Radiation Oncologist is Dr. Collins, with whom he has an appointment for 09/05/2017. He also can follow up with [place] [facility] after his discharge. Plan: 09/02/17 13:24 Subjective: no new complaints. doing well Objective: Vital Signs Temp Pulse Resp BP Pulse Ox 36.4 C 60 16 104/66 95 09/02/17 07:31 09/02/17 07:31 09/02/17 07:31 09/02/17 07:31 09/02/17 07:31 Laboratory Results 08/26/17 06:00 08/26/17 06:00 09/01/17 09/02/17 09/03/17 05:59 05:59 05:59 Intake Total 1000 1640 720 Balance 1000 1640 720 Physical Exam - Physical Exam General Appearance: WD/WN, alert, no apparent distress Neck: supple Respiratory: lungs clear Neuro/Psych: alert, normal mood/affect ICD10 Worksheet Patient Problems: Problems Problem Status Onset Glioblastoma multiforme of parietal lobe Acute S/P craniotomy Acute
[2017-09-02] MEDS: CALCIUM CARBONATE 500 MG CHEWABLE TAB PO PRN (16:17)
[2017-09-02] MEDS: MELATONIN 3 MG TAB PO SCH (20:27)
[2017-09-02] MEDS: ATORVASTATIN CALCIUM 40 MG TAB PO SCH (20:27)
[2017-09-02] MEDS: CHOLECALCIFEROL VIT D3 1,000 UNITS TAB PO SCH (20:28)
[2017-09-02] MEDS: ZONISAMIDE 100 MG CAP PO SCH (20:28)
[2017-09-03] MEDS: PANTOPRAZOLE SODIUM 40 MG TAB PO SCH ×2 (07:46→16:56)
[2017-09-03] MEDS: INSULIN LISPRO 100 UNIT/ML SC SCH ×3 (07:58→16:39)
[2017-09-03] MEDS: metFORMIN HCL 500 MG TAB PO SCH ×2 (07:58→17:00)
[2017-09-03] MEDS: levETIRAcetam 500 MG TAB PO SCH ×2 (08:00→20:41)
[2017-09-03] MEDS: CETIRIZINE 10 MG TAB PO SCH (08:00)
[2017-09-03] MEDS: MULTIVITAMINS 1 EACH TAB PO SCH (08:00)
[2017-09-03] MEDS: TAMSULOSIN HCL 0.4 MG CAP PO SCH (08:00)
[2017-09-03] MEDS: ONDANSETRON DISINTEGRATING 4 MG TAB PO PRN ×2 (09:39→14:03)
[2017-09-03] MEDS: CALCIUM CARBONATE 500 MG CHEWABLE TAB PO PRN (20:40)
[2017-09-03] MEDS: MELATONIN 3 MG TAB PO SCH (20:41)
[2017-09-03] MEDS: CHOLECALCIFEROL VIT D3 1,000 UNITS TAB PO SCH (20:41)
[2017-09-03] MEDS: ATORVASTATIN CALCIUM 40 MG TAB PO SCH (20:41)
--- NOTE | 2017-09-03 21:19 | SOAPPROG ---
SOAP Progress Note Assessment/Plan: Assessment: 66 year old man status post craniotomy on 08/21/2017 and excision of left parietal GBM, with history of right parietal GBM excision approximately 2 years ago, followed by chemotherapy and radiation. Deficits to mobility and activities of daily living with significant visual field deficits * Initial functional independence measure 87 on 08/28/2017. Standby assistance with bed mobility and transfers. Ambulated greater than 150 ft with standby assist for navigation. Climbed and descended 12 stairs with 1 rail, contact guard assist. Car transfer for was accomplished with contact guard assist. Scored 03/12 on the dynamic gait index indicating fall risk. Activities of daily living are contact guard assist with cues for spatial awareness. He has a right visual field cut. He has visual processing deficits. * Obtained head CT 08/29/2017 for left upper extremity ataxia and new pronator drift. It showed postsurgical changes and no midline shift or new hemorrhage. * Continue PT and OT to optimize mobility and activities of daily living to the independent to modified independent level. Cognitive impairment following brain surgery * Delayed recall and deficits to attention and safety awareness. * Continue treatment per Speech and Language Pathology. Diabetes mellitus with exacerbation on corticosteroids. Continue metformin. Not needing insulin. Discontinue dexamethasone on 09/02/2017, per discussion with Neurosurgery. * would continue higher dose metformin on DC for its anti-cancer properties Seizure disorder. Continue levetiracetam and zonisamide, and seizure precautions. Seasonal allergies and history of asthma. Continue cetirizine and fluticasone nasal spray. Symptoms are controlled and not using any albuterol. Gastroesophageal reflux disorder as well as GI prophylaxis. Continue pantoprazole, famotidine, and calcium carbonate all on a p.r.n. basis. Benign prostatic hypertrophy. Continue tamsulosin. Nausea, which in the past has presented during speech therapy sessions. Continue ondansetron as well as prochlorperazine. Mild hyponatremia and anemia on hospital labs. Anemia improving and hyponatremia resolved on labs 08/26/2017. DISPOSITION: Progressing well towards discharge. Discharge home on 09/04/2017. Will have home PT OT and TRIAGE LICENSED PRACTICAL NURSE. FOLLOWUP: He is to see Dr. Pierre at [facility] 1-2 weeks after discharge. He will follow up with [facility], Dr. Gamez. His primary care provider is [place] physician, Dr. Olayinka Dempsey. Radiation Oncologist is Dr. Collins, with whom he has an appointment for 09/05/2017. He also can follow up with [place] [facility] after his discharge. Plan: 09/02/17 13:24 09/03/17 21:18 Subjective: no new complaints Objective: Vital Signs Temp Pulse Resp BP Pulse Ox 36.4 C 74 16 103/59 L 97 09/03/17 19:49 09/03/17 19:49 09/03/17 19:49 09/03/17 19:49 09/03/17 19:49 Laboratory Results 08/26/17 06:00 08/26/17 06:00 09/02/17 09/03/17 09/04/17 05:59 05:59 05:59 Intake Total 1640 1220 990 Balance 1640 1220 990 Physical Exam - Physical Exam General Appearance: WD/WN, alert, no apparent distress Neck: supple Respiratory: lungs clear Cardiac/Chest: regular rate, rhythm Neuro/Psych: alert, normal mood/affect, oriented x 3 ICD10 Worksheet Patient Problems: Problems Problem Status Onset Glioblastoma multiforme of parietal lobe Acute S/P craniotomy Acute
[2017-09-03] MEDS: ZONISAMIDE 100 MG CAP PO SCH (23:37)
[2017-09-04 06:31] VITALS: BP 105/56
[2017-09-04] MEDS: ONDANSETRON DISINTEGRATING 4 MG TAB PO PRN (06:38)
[2017-09-04] MEDS: PANTOPRAZOLE SODIUM 40 MG TAB PO SCH (06:39)
[2017-09-04] MEDS: INSULIN LISPRO 100 UNIT/ML SC SCH ×2 (07:52→11:42)
[2017-09-04] MEDS: metFORMIN HCL 500 MG TAB PO SCH (08:30)
[2017-09-04] MEDS: levETIRAcetam 500 MG TAB PO SCH (08:30)
[2017-09-04] MEDS: MULTIVITAMINS 1 EACH TAB PO SCH (08:30)
[2017-09-04] MEDS: TAMSULOSIN HCL 0.4 MG CAP PO SCH (08:30)
[2017-09-04] MEDS: CETIRIZINE 10 MG TAB PO SCH (08:30)
--- NOTE | 2017-09-04 09:20 | PDOREHIP ---
Admission [facility] - Admission - 3 Day Assessment Period Admission Date/Day 1: 08/25/17 Day 2: 08/26/17 Day 3: 08/27/17 Discharge [facility] - Discharge - 3 Day Assessment Period 2 Days Prior to Anticipated Discharge Date: 09/02/17 1 Day Prior to Anticipated Discharge Date: 09/03/17 Anticipated Discharge Date: 09/04/17 - Discharge Skin Conditions Unhealed Pressure Ulcer (1 or more/Stage 1 or >)-Discharge: 0. No
[2017-09-04] MEDS: ACETAMINOPHEN 325 MG TAB PO PRN (10:32)
[2017-09-04] MEDS: PROCHLORPERAZINE MALEATE 10 MG TAB PO PRN (11:50)
--- NOTE | 2017-09-04 12:23 | GDS ---
[f rep st] DISCHARGE SUMMARY ADMISSION DIAGNOSIS: Debility, status post craniotomy and excision of left parietal recurrent glioblastoma multiforme. DISCHARGE DIAGNOSIS: Debility, status post craniotomy and excision of left parietal recurrent glioblastoma multiforme. OTHER DIAGNOSES: 1. Diabetes mellitus, type 2. 2. Seizure disorder. 3. Seasonal allergies. CONSULTATIONS: There were none. COMPLICATIONS: There were none. PROCEDURES: There was a head CT. HISTORY/HOSPITAL COURSE: This patient was initially seen at [facility] with confusion and right-sided paresthesias and incoordination of the right hand. Head CT showed a recurrent mass in the left parietal lobe, cerebral edema, and midline shift. He was taken to the operating room on August 21, 2017, and had craniotomy and excision of a mass consistent with a recurrent glioblastoma multiforme. He was stabilized medically and appropriate for transfer to inpatient rehabilitation. He did well in his rehabilitation stay. Initial functional independence measure after 3 days on inpatient rehabilitation was 87 on 08/28/2017, which is consistent with assisted living facility level of function. He required standby assist with bed mobility and transfers. He is able to ambulate greater than 150 feet with standby assist for navigation. He climbed and descended 12 stairs with 1 rail with contact guard assist. There was a car transfer done with contact guard assist. As of 08/28/2017, he was considered to be a fall risk due to scoring 12 out of 24 on the dynamic gait index. There was a right- sided visual field cut and deficits to visual processing. On 08/28/2017, he had increased ataxia of the left upper extremity and there was pronator drift noted on exam. Repeat head CT was done, which showed improving postsurgical changes. He continued to have improvement and progressed in terms of mobility to independent in his room as of 08/31/2017. He was walking 150 feet or greater with a trekking pole and with handhold hand-held assist when out of doors. He could negotiate curb steps, as well as 12 stairs indoors using a rail and standby assist of his . He achieved modified independence using a trekking pole as an assistive device with activities of daily living. He had symptoms of seasonal allergies, which responded well to use of cetirizine , as well as fluticasone nasal spray. Regarding diabetes mellitus, when he was admitted to inpatient rehabilitation, he was taking dexamethasone and required some insulin. He continued metformin that he had been taking prior to his hospitalization, but it was increased from 500 mg b.i.d. to 1000 mg b.i.d. Once dexamethasone was tapered and then discontinued, he had no need for insulin. Scalp sutures were removed on the day of discharge, which was 14 days postop. CONDITION UPON DISCHARGE: Good. ACTIVITY: Ad aneta, but he needs standby assist, especially for ambulation in unfamiliar circumstances or outside where he might need occasional contact guard assist for instance, for negotiating steps. He is not to be driving. DIET: Regular. DISCHARGE MEDICATIONS: 1. Atorvastatin 80 mg p.o. q.h.s. 2. Fluticasone nasal spray 2 sprays each naris daily p.r.n. 3. Levetiracetam 1500 mg p.o. b.i.d. 4. Metformin 1000 mg p.o. b.i.d. with meals. 5. Ondansetron 8 mg p.o. q.4 hours p.r.n. nausea and vomiting. 6. Pantoprazole 40 mg p.o. b.i.d. with meals. 7. Prochlorperazine 10 mg p.o. q.4 hours p.r.n. nausea, vomiting. 8. Sodium chloride nasal spray p.r.n. 9. Tamsulosin 0.4 mg p.o. daily. 10. Zonisamide 100 mg p.o. q.h.s.. ISSUES TO BE ADDRESSED FOLLOWUP: 1. Functional status. He will have assessments with home PT and GREEN BUILDING ENGINEER and can follow up with his primary care provider regarding his progress. 2. Visual disturbances, status post craniotomy. He will see Neuro- Ophthalmology per his healthcare provider, which is [facility]. 3. Recurrent glioblastoma multiforme. He has referrals to [facility], Dr. Collins and [facility] Dr. Gamez. 4. Status post craniotomy. He has followup with neurosurgeon, Dr. Irvin Pierre. 5. He had a palliative care consultation at [facility] regarding recurrent glioblastoma. It would be appropriate for him to follow up with [facility] after his discharge. Indication for continued atorvastatin was briefly discussed with his . He could quite possibly discontinue atorvastatin and potentially metformin depending on his prognosis per Oncology. Greater than 30 minutes was spent on this discharge summary, including medication reconciliation, coordination of care, and counseling patient and family. Copy requested to: Toni Collins [facility] Dr. Nicholas Pierce [facility] /[id number]
== END 2017-09-04 13:24 | disposition home or self-care (01) | DRG 949 ==
LOC: BREH 15:29
PROVIDERS: ADMIT Internal Medicine; ATTEND Internal Medicine
DX: Z48.3 Aftercare following surgery for neoplasm (principal); G31.84 Mild cognitive impairment of uncertain or unknown etiology; H53.40 Unspecified visual field defects; E87.1 Hypo-osmolality and hyponatremia; R11.0 Nausea; D64.9 Anemia, unspecified; G40.909 Epilepsy, unspecified, not intractable, without status epilepticus; E11.9 Type 2 diabetes mellitus without complications; K21.9 Gastro-esophageal reflux disease without esophagitis; E55.9 Vitamin D deficiency, unspecified; N40.0 Benign prostatic hyperplasia without lower urinary tract symptoms; J30.2 Other seasonal allergic rhinitis
CPT/HCPCS: 92507-GN; 92523-GN; 97110-GO; 97110-GP; 97112-GP; 97116-GP; 97162-GP; 97166-GO; 97530-GO; 97530-GP; 97535-GO; G0515-GO; J1815